=== PATIENT | female | born 1970 | race Caucasian/White ===

== ENCOUNTER 2016-12-03 20:39 | Emergency (ER) | payer OTHER ==
[~2016-12-03] VITALS: Ht 177.8 cm; Wt 122.7 kg
[~2016-12-03 20:39] MED LIST: ASPIRIN E.C. 8181 MG PO; CELEBREX 200MG200 MG PO; CELEXA20 MG PO; CELEXA40 MG PO; CLARITIN 1010 MG/TAB PO; CLEOCIN HCL300 MG PO; COREG 3.123.125 MG/T PO; FLEXERIL10 MG PO; IMITREX25 MG PO; LEXAPRO 5MG5 MG PO; LORTAB 5/500 501 TAB PO; MOBIC 7.5MG7.5 MG PO; MOTRIN 200200 MG/TAB PO; MOTRIN 800800 MG/TAB PO; MULTIPLE VITAMI1 CAP PO; NAPROSYN500 MG PO; NITROSTAT0.4 MG/TAB SL; NORCO 325 MG-51 TAB PO; PERCOCET 325 MG1 TA2 PO; PERCOCET 325 MG1 TAB PO; PLAVIX 75MG TAB75 MG PO; PREDNISONE20 MG PO; STOOL SOFTENER100 MG PO; VENTOLIN0.09 MG IH; VITAMIN D 400400 IU PO; WELLBUTRIN SR150 M1 PO; ZOCOR 20MG20 MG PO
[2016-12-03 20:50] VITALS: TEMP 98.3
[2016-12-03 22:16] LABS: BASO % 0.8 % (0.0-2.0); EOS # 0.2 (0.0-0.7); EOS % 4.8 % (0-4.0); GRAN # 2.1 (1.4-6.5); GRAN % 40.8 % (42.2-75.2); HEMATOCRIT 29.3 % (37.0-47.0); HEMOGLOBIN 8.7 g/dl (12.5-16.0); LYMPH # 2.2 (1.2-3.4); MEAN CELL VOLUME 81 fl (80.0-100.0); MEAN CORPUSCULAR HEMOGLOBIN 24 pg (27.0-31.0); MEAN CORPUSCULAR HGB CONC 30 g/dl (33.0-37.0); MEAN PLATELET VOLUME 10.6 fl (7.4-10.4); MONO # 0.5 (0.1-0.6); MONO % 9.4 % (1.7-9.3); PLATELET COUNT 249 K/mm3 (130-400); RED BLOOD COUNT 3.61 M/mm3 (4.10-5.30); REDCELL DISTRIBUTION WIDTH-CV 17.2 % (11.5-14.5)
[2016-12-03 22:20] LABS: PH 5 (5-8); SQUAMOUS EPITHELIAL 0-2 /hpf; URINE APPEARANCE Clear; URINE BACTERIA Rare /hpf; URINE BILIRUBIN Negative (NEGATIVE); URINE BLOOD Negative (NEGATIVE); URINE COLOR Yellow; URINE GLUCOSE Negative (NEGATIVE); URINE KETONE Negative (NEGATIVE); URINE RBC 0-2 /hpf; URINE UROBILINOGEN Negative (NEGATIVE); URINE WBC 0-2 /hpf
[2016-12-03 22:29] LABS: BILIRUBIN,TOTAL 0.5 mg/dL (0.0-1.0); C-REACTIVE PROTEIN 0.6 mg/dL (0.0-0.9); CREATININE, serum 0.71 mg/dL (0.52-1.25); POTASSIUM 3.5 mmol/L (3.4-5.0); TOTAL PROTEIN 7.4 gm/dL (6.4-8.2)
[2016-12-03 22:56] VITALS: BP 131/74; PULSE 68
== END 2016-12-03 22:56 | disposition home or self-care (01) ==
LOC: COL.ER 20:39
PROVIDERS: Emergency Medicine
DX: N23 Unspecified renal colic (principal); R10.31 Right lower quadrant pain; D64.9 Anemia, unspecified; R10.11 Right upper quadrant pain; I10 Essential (primary) hypertension; Z87.442 Personal history of urinary calculi; Z98.84 Bariatric surgery status
CPT/HCPCS: J1170; J1885; J2405; J7030

== ENCOUNTER 2019-08-22 08:41 | Emergency (ER) | payer BC ==
[~2019-08-22] VITALS: Ht 177.8 cm; Wt 109.1 kg
[2019-08-22 08:45] VITALS: BP 141/82; TEMP 97.6
[2019-08-22] MEDS ORDERED: ZYRTEC 10MG10 MG PO (09:05)
[2019-08-22] MEDS ORDERED: PREDNISONE20 MG PO (09:05)
[2019-08-22 09:10] VITALS: PULSE 72
== END 2019-08-22 09:10 | disposition home or self-care (01) ==
LOC: COL.ER 08:41
DX: R21 Rash and other nonspecific skin eruption (principal); I10 Essential (primary) hypertension; F41.9 Anxiety disorder, unspecified

== ENCOUNTER → 2023-06-26 | Outpatient (CLI) | payer BC ==
[~2023-06-26] MED LIST changes: +ZYRTEC 10MG10 MG PO
== END ==
LOC: MHCPAIN 13:59
DX: M47.812 Spondylosis without myelopathy or radiculopathy, cervical region (principal); M54.2 Cervicalgia; M47.896 Other spondylosis, lumbar region
CPT/HCPCS: G0463

== ENCOUNTER → 2023-07-25 | Outpatient (CLI) | payer BC | LOC: MHCPAIN 10:59 | DX: M47.812 Spondylosis without myelopathy or radiculopathy, cervical region (principal); M54.2 Cervicalgia; G44.86 Cervicogenic headache | CPT/HCPCS: J0665 ==